=== PATIENT | male | born 1940 | race Caucasian/White ===

== ENCOUNTER 2019-05-07 18:23 | Emergency (ER) | payer MEDICARE, OTHER, SELFPAY ==
[2019-05-07 18:24] VITALS: BP 162/97; PULSE 82; RESP 16; TEMP 36.7; O2SAT 98; BMI 27.3
[2019-05-07 20:16] LABS: Bedside Glucose 82 mg/dL (70-110)
--- NOTE | 2019-05-07 20:28 | EKG12_ITS ---
Test Reason : LEFT ARM NUMBNESS Blood Pressure : / mmHG Vent. Rate : 081 BPM Atrial Rate : 081 BPM P-R Int : 174 ms QRS Dur : 078 ms QT Int : 406 ms P-R-T Axes : 051 -06 072 degrees QTc Int : 471 ms Normal sinus rhythm Normal ECG Confirmed by JENSEN PARSONS, JB ([id number]), editor managing newspaper JORDANA JIANG ([id number]) on 05/11/2019 8:54:11 AM Referred By: MELO Confirmed By:JB STYLES MD
--- NOTE | 2019-05-07 20:30 | RAD_ITS ---
STUDY: X-RAY CHEST REASON FOR EXAM: Male, 79 years old. Chest pain TECHNIQUE: Dental view COMPARISON: February 10, 2017 FINDINGS: The lungs are clear and expanded. There is no demonstrated pleural abnormality. Normal size heart. Normal mediastinum and jarrell. Normal visualized pulmonary arteries. Normal visualized aortic arch and descending thoracic aorta. Normal visualized thoracic spine. There are old bilateral rib fractures. There is no demonstrated abnormality of the visualized soft tissue structures of the upper abdomen. RAD/Chest 1 View (Portable) IMPRESSION: Normal x-ray examination of the chest. Electronically Signed: Chinedu Moyer DO at 20:53 EDT Tel [phone], Service support ,
[2019-05-07 20:31] VITALS: O2SAT 100
[2019-05-07] MEDS: Aspirin 81 MG TAB.CHEW 324 MG PO (20:43)
[2019-05-07 20:51] LABS: Absolute Lymphocyte Count 0.98 X10^3/ul (0.83-4.51); Absolute Neutrophil Count 3.4 X10^3/uL (2.0-7.7); Basophil# 0.01 X10^3/uL; Basophil% 0.2 % (0-1); Eosinophil# 0.01 X10^3/uL; Eosinophils% 0.2 % (0-5); Hematocrit 38.9 % (40-54); Hemoglobin 13.3 g/dl (13.0-16.5); Lymphocyte # 0.98 X10^3/ul (4.0); Lymphocyte % 19.8 % (19-41); Mean Corp Hgb Conc 34.2 g/gl (32-36); Mean Corpuscular Hgb 28.2 pg (27.0-32.0); Mean Corpuscular Volume 82.6 fL (80-94); Mean Platelet Vol. 8.8 fl (6.2-12.0); Monocyte# 0.54 X10^3/uL; Monocyte% 10.9 % (0-10); Neutrophil % 68.5 % (47-70); POSITIVE COUNT NO; POSITIVE DIFFERENTIAL NO; POSITIVE MORPHOLOGY NO; Platelet Count 143 K/mm3 (150-450); RBC Distribution Width CV 14.4 % (11.6-14.6); RBC Distribution Width SD 43.8 fl (35.1-43.9); Red Blood Count 4.71 M/mm3 (4.6-6.2)
[2019-05-07 21:00] VITALS: BP 176/79; PULSE 74; RESP 15; O2SAT 100
[2019-05-07 21:12] LABS: Anion Gap 6 (5-15); BUN 15 mg/dL (7-18); BUN/Creat Ratio 13.9 RATIO (10-20); Calcium,Total 8.8 mg/dL (8.5-10.1); Chloride 109 mmol/L (98-107); Creatinine, Serum 1.08 mg/dL (0.70-1.30); EST Glomerular Filtration Rate 70 mL/min (>60); Est Glom Filt Rate - Afr Amer 85 mL/min (>60); Estimated Creatinine Clearance 51.69 ml/min; Glucose 79 mg/dL (74-106); Potassium 3.5 mmol/L (3.5-5.1); Sodium Level 142 mmol/L (136-145)
--- NOTE | 2019-05-07 22:28 | CT_ITS ---
STUDY: CT BRAIN WITHOUT CONTRAST REASON FOR EXAM: Male, 79 years old. Left arm numbness RADIATION DOSAGE (If Supplied By Facility): CTDIvol = ( 44.99 ) mGy, DLP = ( 812.98 ) mGycm TECHNIQUE: Transaxial CT imaging of the brain was performed without administration of intravenous contrast material. Individualized dose optimization techniques were used for this CT. COMPARISON: No relevant priors. FINDINGS: Normal soft tissue structures. Normal calvarium. Normal size ventricles and extra-axial spaces for the patient's age. Normal white matter tracts of the cerebral hemispheres. Normal basal ganglia and thalami. Focal calcification within the left side of the malvin. Normal cerebellum. There is no intracranial hemorrhage. There are no findings of an acute ischemic infarction. Normal visualized paranasal sinuses. CT/Brain/Head without Contrast IMPRESSION: No acute intracranial pathology of the brain. Electronically Signed: Chinedu Moyer DO at 23:10 EDT Tel [phone], Service support ,
[2019-05-07 23:00] VITALS: BP 172/70; PULSE 71; RESP 17; O2SAT 99
--- NOTE | 2019-05-08 00:53 | ED.DCSUM_ITS ---
- ER Visit Summary Date of Service: 05/08/19 Chief Complaint: Left arm paresthesias History of Present Illness: The patient is a 79 M who presents with left arm paresthesias began prior 24 hours prior to evaluation. Patient states that he began suddenly. Patient states he had some numbness and tingling in his left arm from shoulder to his hands. Patient describes it as a cold sensation and pressure sensation. Patient states nothing makes it better or worse. Patient denies any chest pain or shortness of breath. Patient denies any diaphoresis. Patient denies any nausea or vomiting. Patient does admit to some mild neck pain. Patient denies any headaches. Physical Examination: Vital signs are stable. Patient is afebrile. Patient is in no acute distress. Oral mucosa is pink and moist. Neck is supple. Trachea is midline. There is no JVD noted. There is some mild left cervical paraspinal muscle tenderness. There is no bony crepitance or step-off. Heart was regular rate and rhythm. There is a grade 3/6 systolic murmur. Lungs are clear and equal bilateral. Abdomen is soft and nontender. Cranial nerves II through XII are intact. There are no focal motor or sensory deficits noted. Test Results: Portable chest x-ray was obtained was normal. EKG showed normal sinus rhythm with a rate of 81. There are no acute ST or T wave changes. CBC basic metabolic profile initial troponin were normal. Given the patient's duration of symptoms of less than 6 hours, a delta troponin was recommended. This was performed. This was normal at 0.023. Emergency Department Course and Treatment: Patient has a HEART score of 3. Given the delta troponin being normal, patient is low risk for acute cardiac event. Patient was instructed to follow-up with his primary care physician for further evaluation of his paresthesias. Patient and family understood and were agreeable with the plan. All questions were answered. Disposition: Discharge home Impression: Left upper extremity paresthesias This note was generated with [employer] dictation software. It may contain incorrect words, spelling, and punctuation that were not noted in review of the chart prior to signing ED Disposition - Plan for ED Patient: Disposition: Home or Assisted Living Diagnosis: Arm paresthesia, left Instructions: ED Paraesthesias Referrals: Crispin Cesar MD [Primary Care Provider] - 3-5 Days
[2019-05-08 01:00] VITALS: BP 169/80; PULSE 76; RESP 16; O2SAT 99
[2019-05-08 01:14] VITALS: BP 169/80; PULSE 76; RESP 16; O2SAT 99
== END 2019-05-08 01:15 | disposition home or self-care (01) ==
PROVIDERS: Emergency Provider Emergency Medicine; Family Provider Internal Medicine; PCP Internal Medicine
DX: R20.2 Paresthesia of skin (principal); E11.9 Type 2 diabetes mellitus without complications; Z79.4 Long term (current) use of insulin
CPT/HCPCS: 36415; 70450; 71045; 80048; 82962; 84484; 85025; 93005; 99285; A4216

== ENCOUNTER 2019-12-27 13:26 | Emergency (ER) | payer MEDICARE, OTHER, SELFPAY ==
[2019-12-27 13:28] VITALS: BP 148/88; PULSE 70; RESP 16; TEMP 36.4; O2SAT 98; BMI 27.2
[2019-12-27 14:07] LABS: Absolute Lymphocyte Count 0.98 X10^3/uL (0.83-4.51); Absolute Neutrophil Count 3.6 X10^3/uL (2.0-7.7); Basophil# 0.02 X10^3/uL; Basophil% 0.4 % (0-1); Eosinophil# 0.03 X10^3/uL; Eosinophils% 0.6 % (0-5); Hematocrit 40.4 % (40-54); Hemoglobin 13.8 g/dL (13.0-16.5); Lymphocyte # 0.98 X10^3/ul (4.0); Lymphocyte % 18.9 % (19-41); Mean Corp Hgb Conc 34.2 g/dL (32-36); Mean Corpuscular Hgb 27.2 pg (27.0-32.0); Mean Corpuscular Volume 79.5 fL (80-94); Mean Platelet Vol. 9.8 fl (6.2-12.0); Monocyte# 0.53 X10^3/uL; Monocyte% 10.2 % (0-10); NRBC Flagged by Analyzer 0 % (0-5); Neutrophil # 3.59 X10^3/uL (2.7-7.7); Neutrophil % 69.1 % (47-70); Platelet Count 187 K/mm3 (150-450); RBC Distribution Width CV 15.4 % (11.6-14.6); RBC Distribution Width SD 44.2 fl (35.1-43.9); Red Blood Count 5.08 M/mm3 (4.6-6.2); White Blood Count 5.2 K/mm3 (4.4-11.0)
[2019-12-27 14:14] LABS: ALB/GLOB Ratio 1.2 RATIO (0.9-2.4); AST(SGOT) 24 U/L (15-37); Alanine Aminotransfer ALT/SGPT 42 U/L (16-61); Albumin, Serum 3.3 g/dL (3.2-5.0); Alkaline Phosphatase 96 U/L (45-117); Anion Gap 6 (5-15); BUN 13 mg/dL (7-18); BUN/Creat Ratio 11.8 RATIO (10-20); Calcium,Total 8.8 mg/dL (8.5-10.1); Chloride 112 mmol/L (98-107); EST Glomerular Filtration Rate 69 mL/min (>60); Est Glom Filt Rate - Afr Amer 83 mL/min (>60); Estimated Creatinine Clearance 50.75 ml/min; Globulin 2.8 g/dL (2.2-4.2); Glucose 256 mg/dL (74-106); Protein, Total 6.1 g/dL (6.4-8.2); Sodium Level 142 mmol/L (136-145)
--- NOTE | 2019-12-27 14:36 | ED.DCSUM_ITS ---
History of Present Illness Chief Complaint: Abn Labs Narrative: Patient presenting for evaluation secondary to hypokalemia. Patient has an underlying history of a liver transplant. Patient states that he went to get his normal screening labs today and was told that he was hypokalemic and instructed to come to the emergency department. He did feel somewhat fatigued today, but denies any infectious signs or symptoms. He has been zoroastrian with taking his medications. Patient is not on any diuretics. No changes in his diet. Patient is recently on doxycycline. Review of systems otherwise negative. Past Medical History - Allergies and Home Meds Allergies/Adverse Reactions: Allergies Penicillins [PCN] Adverse Reaction (Verified 12/27/19 13:28) Other IT DOESN'T WORK ON ME. Primary Care Physician: Crispin Cesar MD [Primary Care Provider] - Past Medical History: - - Liver transplant Surgical History: - - History of liver transplant 113, appendectomy, left hand surgery status post trauma, right inguinal hernia repair, umbilical hernia repair. Smoking Status: Never smoker - Family History Maternal Family History: Reports: Diabetes, Heart Disease Paternal Family History: Reports: Diabetes, Heart Disease - History of at 58, unclear reason, s/p leg crush injury at that time w/ suspected PE. Review of Systems All systems negative except as indicated General: Reports: Malaise Eyes: Denies: Visual changes - bilaterally, Diplopia ENT: Denies: Rhinorrhea, Sore throat Cardiovascular: Denies: Chest pain, Palpitations Respiratory: Denies: Dyspnea, Cough, Dyspnea on exertion Gastrointestinal: Denies: Abdominal pain, Nausea, Vomiting, Diarrhea, Melena, Hematochezia Genitourinary: Denies: Dysuria, Hematuria, Frequency Musculoskeletal: Denies: Back pain, Extremity Pain Skin: Denies: Rash, Wounds Neurological: Denies: Headache, Weakness, Numbness Physical Exam Vital Signs/Narrative: Vital Signs Temp Pulse Resp BP Pulse Ox 12/27/19 13:28 97.5 F L 70 16 148/88 H 98 Inital Vital Signs reviewed: Yes General: Well nourished, Well developed, No Acute Distress Head: Normocephalic, Atraumatic Eyes: Perrl, EOMI ENT: Moist mucous membranes, No rhinorrhea Neck: Supple, Nontender Cardiovascular: Regular rate, Regular rhythm, Murmur - 2 out of 6 systolic Respiratory: No distress, CTA bilaterally, Chest nontender Abdomen: Soft, Nontender, Nondistended, Normal bowel sounds, - - Well-healed abdominal surgical scar Back: Nontender, Normal Inspection Extremities: Nontender, No edema Skin: Normal color, No rash Neurological: Alert, Oriented x3, Cranial nerves II-XII grossly intact, Normal Strength, Normal Sensation Psychological: Normal affect, Normal Mood Diagnostic/Tx/Re-eval - Medical Decision Making Patient presented due to concern for hyperkalemia. Potassium was found to be 3.0. I feel that the patient is appropriate for outpatient treatment at this time. He is not on any diuretics that would make me think that he would have increased potassium loss. Patient will be placed on a course of oral potassium replacement. ED Disposition - Plan for ED Patient: Disposition: Home or Assisted Living Diagnosis: Hypokalemia Instructions: Hypokalemia Prescriptions: Potassium Chloride [K-Tab ER] 20 meq PO BID #10 tablet.er Prescription Printed Referrals: Crispin Cesar MD [Primary Care Provider] - 5-7 Days
[2019-12-27 14:56] VITALS: PULSE 74; RESP 17; O2SAT 98
== END 2019-12-27 14:57 | disposition home or self-care (01) ==
PROVIDERS: Emergency Provider Emergency Medicine; PCP Internal Medicine
DX: E87.6 Hypokalemia (principal); R01.1 Cardiac murmur, unspecified; Z94.4 Liver transplant status; Z79.899 Other long term (current) drug therapy
CPT/HCPCS: 80053; 85025; 99283; A4216

== ENCOUNTER → 2020-09-15 17:25 | Outpatient (CLI) | payer MEDICARE, OTHER, SELFPAY | PROVIDERS: PCP Internal Medicine; Referring Provider Nurse Practitioner; Visit Provider Nurse Practitioner | DX: Z20.828 Contact with and (suspected) exposure to other viral communicable diseases (principal) | CPT/HCPCS: 87635; C9803; U0003 ==

== ENCOUNTER 2021-02-16 00:21 | Emergency (ER) | payer MEDICARE, OTHER, SELFPAY ==
[2021-02-16 00:22] VITALS: BP 133/64; PULSE 67; RESP 21; TEMP 37.1; O2SAT 95; BMI 27.1
--- NOTE | 2021-02-16 00:28 | EKG12_ITS ---
Test Reason : GEN ILL Blood Pressure : / mmHG Vent. Rate : 065 BPM Atrial Rate : 065 BPM P-R Int : 190 ms QRS Dur : 078 ms QT Int : 434 ms P-R-T Axes : 048 -11 031 degrees QTc Int : 451 ms Normal sinus rhythm Normal ECG Confirmed by JENSEN PARSONS, JB ([id number]), editor dictionary JORDANA JIANG ([id number]) on 02/19/2021 10:31:15 AM Referred By: CL Confirmed By:JB STYLES MD
--- NOTE | 2021-02-16 00:28 | RAD_ITS ---
STUDY: X-RAY CHEST REASON FOR EXAM: Male, 81 years old. cough TECHNIQUE: Single AP portable view of the chest. COMPARISON: 05/07/2019 FINDINGS: The lungs are clear and expanded. There is no demonstrated pleural abnormality. Normal size heart. Normal mediastinum and jarrell. Normal visualized pulmonary arteries. Normal visualized aortic arch and descending thoracic aorta. Normal visualized thoracic spine. Normal visualized ribs, clavicles, and shoulders. There is no demonstrated abnormality of the visualized soft tissue structures of the upper abdomen. RAD/Chest 1 View (Portable) IMPRESSION: Normal x-ray examination of the chest. Electronically Signed: Korey Hillman DO at 1:33 EDT Tel , Service support ,
[2021-02-16 00:31] VITALS: BP 127/62; PULSE 66; RESP 20; TEMP 37.1; O2SAT 95
[2021-02-16 00:46] LABS: Absolute Lymphocyte Count 0.86 X10^3/uL (0.83-4.51); Absolute Neutrophil Count 3.8 X10^3/uL (2.0-7.7); Basophil# 0.01 X10^3/uL; Basophil% 0.2 % (0-1); Eosinophil# 0.09 X10^3/uL; Eosinophils% 1.6 % (0-5); Hematocrit 31.8 % (40-54); Lymphocyte # 0.86 X10^3/ul (4.0); Lymphocyte % 15.4 % (19-41); Mean Corp Hgb Conc 34.6 g/dL (32-36); Mean Corpuscular Hgb 28.1 pg (27.0-32.0); Mean Corpuscular Volume 81.1 fL (80-94); Mean Platelet Vol. 8.7 fl (6.2-12.0); Monocyte# 0.81 X10^3/uL; Monocyte% 14.5 % (0-10); NRBC Flagged by Analyzer 0 % (0-5); Neutrophil # 3.79 X10^3/uL (2.7-7.7); Neutrophil % 67.8 % (47-70); Platelet Count 237 K/mm3 (150-450); RBC Distribution Width CV 13.1 % (11.6-14.6); RBC Distribution Width SD 38.5 fl (35.1-43.9); Red Blood Count 3.92 M/mm3 (4.6-6.2); White Blood Count 5.6 K/mm3 (4.4-11.0)
--- NOTE | 2021-02-16 00:56 | ED.VIS.GEN ---
History of Present Illness Chief Complaint: General Illness Informant: Patient Narrative: 81-year-old male with past medical history of liver transplant presents with concern for weakness. Patient was diagnosed with coronavirus 1 week ago. Has had symptoms for approximately 10 days. Did receive his second COVID vaccine 8 days ago. was concerned because he had an oxygen saturation at home of 86%. This immediately improved when they went to walk out the door to 95%. Patient has been feeling weak over the past 1 week. Admits to mild short of breath. Does have myalgias. Denies any nausea, vomiting, diarrhea. Past Medical History - Allergies and Home Meds Allergies/Adverse Reactions: Allergies Penicillins [PCN] Adverse Reaction (Verified 02/16/21 00:22) Other IT DOESN'T WORK ON ME. Primary Care Physician: Crispin Cesar MD [Primary Care Provider] - Prior records reviewed: Yes Past Medical History: - - hemachromatosis Surgical History: - - History of liver transplant 113, appendectomy, left hand surgery status post trauma, right inguinal hernia repair, umbilical hernia repair. Lives: Spouse/ Significant Other Smoking Status: Never smoker Alcohol: None Drugs: None - Family History Maternal Family History: Reports: Diabetes, Heart Disease Paternal Family History: Reports: Diabetes, Heart Disease - History of at 58, unclear reason, s/p leg crush injury at that time w/ suspected PE. Review of Systems General: Denies: Chills, Fever, Sweats Eyes: Denies: Visual changes - bilaterally, Diplopia ENT: Denies: Rhinorrhea, Sore throat Cardiovascular: Denies: Chest pain, Palpitations Respiratory: Reports: Dyspnea. Denies: Cough, Dyspnea on exertion Gastrointestinal: Denies: Abdominal pain, Nausea, Vomiting, Diarrhea, Melena, Hematochezia Genitourinary: Denies: Dysuria, Hematuria, Frequency Musculoskeletal: Reports: Myalgias. Denies: Back pain, Extremity Pain Skin: Denies: Rash, Wounds Neurological: Reports: Weakness. Denies: Headache, Numbness Physical Exam Vital Signs/Narrative: Vital Signs Temp Pulse Resp BP Pulse Ox 02/16/21 00:31 98.7 F 66 20 H 127/62 H 95 02/16/21 00:22 98.7 F 67 21 H 133/64 H 95 Inital Vital Signs reviewed: Yes General: Well nourished, Well developed, No Acute Distress Head: Normocephalic, Atraumatic Eyes: Perrl, EOMI ENT: Moist mucous membranes, No rhinorrhea Neck: Supple, Nontender Cardiovascular: Regular rate, Regular rhythm, No murmurs Respiratory: No distress, CTA bilaterally, Chest nontender Abdomen: Soft, Nontender, Nondistended, Normal bowel sounds Back: Nontender, Normal Inspection Extremities: Nontender, No edema Skin: Normal color, No rash Neurological: Alert, Oriented x3, Cranial nerves II-XII grossly intact, Normal Strength, Normal Sensation Psychological: Normal affect, Normal Mood Diagnostic/Tx/Re-eval Chest X-Ray - ED: 1 View, Read by ED Physician, Read by Radiologist, Normal Clinical Impression(s) from Imaging Studies Chest X-Ray 02/16/21 00:28 IMPRESSION: Normal x-ray examination of the chest. Electronically Signed: Korey Hillman DO at 1:33 EDT Tel , Service support , Laboratory Data 02/16/21 02/16/21 00:41 00:41 WBC 5.6 RBC 3.92 L Hgb 11.0 L Hct 31.8 L MCV 81.1 MCH 28.1 MCHC 34.6 RDW Std Deviation 38.5 RDW Coeff of Gaetano 13.1 Plt Count 237 MPV 8.7 Immature Gran % (Auto) 0.500 Neut % (Auto) 67.8 Lymph % (Auto) 15.4 L [place] % (Auto) 14.5 H Eos % (Auto) 1.6 Baso % (Auto) 0.2 Absolute Neuts (auto) 3.8 Absolute Lymphs (auto) 0.86 Nucleated RBC % 0 Sodium 133 L Potassium 3.2 L Chloride 103 Carbon Dioxide 23.0 Anion Gap 7 BUN 21 H Creatinine 1.16 Estim Creat Clear Calc 46.60 Est GFR (MDRD) Af Amer 78 Est GFR (MDRD) Non-Af 65 BUN/Creatinine Ratio 18.1 Glucose 153 H Calcium 8.3 L Total Bilirubin 0.40 AST 88 H ALT 95 H Alkaline Phosphatase 197 H Troponin I < 0.015 Total Protein 5.9 L Albumin 2.3 L Globulin 3.6 Albumin/Globulin Ratio 0.6 L - Rhythm Strip Rhythm Strip: Sinus Rhythm Rate: 65 Ectopy: None - EKG Initial EKG Interpretation: Sinus Rhythm - Normal sinus rhythm at 65 bpm. DE interval of 190 ms. QTC of 451 ms. No evidence of ST elevation or depression at this time. - Medical Decision Making Patient appears well nontoxic. No hypoxemia at rest. Lungs clear. Chest x-ray interpreted by myself shows no cardiomegaly or significant infiltrate. Lab work shows a hypokalemia which was replaced by mouth otherwise there is a slight transaminitis. No hyperbilirubinemia. EKG nonischemic. Patient was ambulated on room air and desaturated to 87%. Patient will be placed on 2 L by nasal cannula at home on exertion. Advised on continued pulse oximetry evaluation at home. Patient will be given 6 mg of IV Decadron in the emergency department and placed on 6 mg by mouth for the next 10 days. Asked to be seen by his primary care provider within the next 2 days. Patient and agreeable and discharged home in stable condition. Impression: 1. COVID-19 2. Hypoxemia ED Disposition - Plan for ED Patient: Disposition: Home or Assisted Living Instructions: Coronavirus Disease 2019 (COVID-19): Overview Prescriptions: Dexamethasone [Decadron] 6 mg PO DAILY 10 Days #10 tablet Prescription Printed Referrals: Crispin Cesar MD [Primary Care Provider] - 2 Days
[2021-02-16 01:05] LABS: ALB/GLOB Ratio 0.6 RATIO (0.9-2.4); AST(SGOT) 88 U/L (15-37); Alanine Aminotransfer ALT/SGPT 95 U/L (16-61); Albumin, Serum 2.3 g/dL (3.2-5.0); Alkaline Phosphatase 197 U/L (45-117); Anion Gap 7 (5-15); BUN 21 mg/dL (7-18); BUN/Creat Ratio 18.1 RATIO (10-20); Calcium,Total 8.3 mg/dL (8.5-10.1); Chloride 103 mmol/L (98-107); Creatinine, Serum 1.16 mg/dL (0.70-1.30); EST Glomerular Filtration Rate 65 mL/min (>60); Est Glom Filt Rate - Afr Amer 78 mL/min (>60); Globulin 3.6 g/dL (2.2-4.2); Glucose 153 mg/dL (74-106); Potassium 3.2 mmol/L (3.5-5.1); Protein, Total 5.9 g/dL (6.4-8.2); Sodium Level 133 mmol/L (136-145)
[2021-02-16 01:40] VITALS: O2SAT 100
[2021-02-16] MEDS: Potassium Chloride Oral Tablet 20 MEQ 40 MEQ PO (01:44)
[2021-02-16 02:08] VITALS: O2SAT 100; O2SAT 87
--- NOTE | 2021-02-16 02:18 | ED.RN ---
toi called for home o2 set up
[2021-02-16 02:48] VITALS: BP 136/78; PULSE 68; RESP 20; O2SAT 98
[2021-02-16] MEDS: Ondansetron 4 MG/2 ML Vial IV (02:51)
[2021-02-16] MEDS: dexAMETHasone 10 MG/ML Vial 6 MG IV (02:53)
--- NOTE | 2021-02-16 13:34 | CASEMGMT ---
ED O2 set up TC TC to pt. Pt states he feels about medium today. States he is wearing his O2. Pt then asked this CM to speak to his . She states that she has not yet set up the FU appt with PCP but will do so. She states they are just getting around today from ER visit lastnight. She states this morning pt pulse ox was 96% on RA while eating breakfast. She has not checked it otherwise. They do have script filled. Denies further questions/needs.
--- NOTE | 2021-02-17 16:55 | CM.UR ---
spoke with Mrs. Lopez. States patient is doing a little better. States temperature has come down. running 97.4 and 97.7. Pulse ox: am: 96% lunch 98% 3pm: 100% States only using oxygen with ambulation. Denies shortness of breath at rest. Has virtual appt on Friday at 1:30pm. Checking blood sugars q2 hours d/t steroids. Lunch it was 401 3pm: 333 Has ordered doses + sliding scale. Has [facility] provider in [place] that he is following for blood sugars. Denies any needs at this time. Jerome Rogers RN, CCM.
--- NOTE | 2021-02-19 16:03 | CASEMGMT ---
RN CM Note: call deferred. Patient has PCP appt today. Kimo WOODSN RN ACM
== END 2021-02-16 03:08 | disposition home or self-care (01) ==
PROVIDERS: Emergency Provider Emergency Medicine; PCP Internal Medicine
DX: U07.1 COVID-19 (principal); R09.02 Hypoxemia
CPT/HCPCS: 71045; 80053; 84484; 85025; 93005; 96374; 96375; 99284; A4216; J2405

== ENCOUNTER 2021-12-04 13:14 | Outpatient (CLI) | payer MEDICARE, OTHER, SELFPAY | END 2021-12-04 23:59 | disposition short-term general hospital (02) | LOC: LABSPEC 13:16 | PROVIDERS: PCP Internal Medicine; Referring Provider Physician Assistant Surgical; Visit Provider Physician Assistant Surgical | DX: Z11.52 Encounter for screening for COVID-19 (principal) | CPT/HCPCS: 87635; U0003; U0005 ==

== ENCOUNTER 2021-12-23 22:39 | Inpatient (IN) | payer MEDICARE, OTHER, SELFPAY ==
[2021-12-23 22:40] VITALS: BP 144/67; PULSE 90; RESP 18; TEMP 37.7; O2SAT 91; BMI 26.3
[2021-12-23 22:48] VITALS: O2SAT 91
--- NOTE | 2021-12-23 23:01 | RAD_ITS ---
EXAM: XR CHEST, 1 VIEW CLINICAL INDICATION: cough TECHNIQUE: Frontal view of the chest. This report was created using [employer] report generation technology. COMPARISON: 02/16/2021 chest x-ray FINDINGS: LUNGS AND PLEURAL SPACES: No pleural effusion or pneumothorax. No consolidation. No suspicious pulmonary masses or nodules. Mild age-indeterminate proximal wall thickening involving the perihilar and infrahilar regions. HEART: No hilar or mediastinal enlargement. No cardiomegaly. MEDIASTINUM: Central airways and mediastinal contour are unremarkable. BONES/JOINTS: Degenerative changes of the spine. SOFT TISSUES: Unremarkable. VASCULATURE: Stable appearance of the ectatic thoracic arch with atherosclerotic calcifications. RAD/Chest 1 View (Portable) IMPRESSION: Age-indeterminate bronchitis. Otherwise, no acute cardiopulmonary disease. Electronically Signed: Rudy Wick MD at 23:52 EST Tel , Service support ,
--- NOTE | 2021-12-23 23:01 | EKG12_ITS ---
Test Reason : SOB Blood Pressure : / mmHG Vent. Rate : 072 BPM Atrial Rate : 072 BPM P-R Int : 182 ms QRS Dur : 072 ms QT Int : 424 ms P-R-T Axes : 028 -16 044 degrees QTc Int : 464 ms Normal sinus rhythm Normal ECG Confirmed by JENSEN PARSONS, JB ([id number]), technical writer and editor JORDANA JIANG ([id number]) on 12/25/2021 9:36:53 AM Referred By: KIRAN Confirmed By:JB STYLES MD
--- NOTE | 2021-12-23 23:02 | EDS_ITS ---
HPI History of Present Illness Chief Complaint: Shortness of Breath Narrative Narrative: 81-year-old male presenting with dyspnea. He reports that his home pulse ox was in the 80s at home. This is with ambulation. He arrives with a pulse ox of 91% on room air and after ambulating to the room he is down to 86%. He states he does feel a little bit dyspneic when he is ambulating but at rest he feels fine. He states he had a fever of 101 prior to arrival. He still has chills and body aches. He is not having any chest pain. He denies any history of DVT/PE. Patient reports that he had COVID-19 in January of last year and ended up having to go home with oxygen therapy. On his tested positive for COVID-19 and he was initially not symptomatic but then developed a sore throat and a cough and has been tested multiple times. He had a COVID PCR that was also negative earlier this month. His primary care physician initially put him on Keflex to treat for pneumonia which he states was in the right middle lobe. Patient also reports that after he failed this therapy he was put on cefdinir. He continues to have symptoms. Patient does have history of liver transplant and is immunosuppressed. Currently the patient is on sirolimus. Patient has history of hypertension, diabetes, hyperlipidemia. PFSH PFSH Home Medications amlodipine 2.5 mg PO DAILY 07/03/14 [History Last Taken 02/19/15 08:00 2.5MG] aspirin 81 mg PO DAILY 07/03/14 [History Last Taken 02/19/15 08:00 81 MG] atorvastatin 10 mg PO QHS 07/03/14 [History Last Taken 02/18/15 22:00 10 MG] insulin lispro [Humalog U-100 Insulin] 15 unit SQ BREAKFAST 07/03/14 [History Last Taken 02/19/15 17:00 4 UNITS] insulin glargine [Lantus Solostar U-100 Insulin] 49 units SUBCUT QHS 10/07/16 [History Last Taken Unknown] sirolimus 2 mg PO DAILY 10/07/16 [History Last Taken Unknown] donepezil 10 mg PO DAILY 05/07/19 [History Last Taken Unknown] folic acid 1 mg PO DAILY 05/07/19 [History Last Taken Unknown] losartan [Cozaar] 25 mg PO BID 05/07/19 [History Last Taken Unknown] insulin lispro 13 unit SQ DINNER 12/27/19 [History Last Taken Unknown] insulin lispro 17 unit SQ LUNCH 12/27/19 [History Last Taken Unknown] insulin lispro unit SQ PRN PRN 02/16/21 [History Last Taken Unknown] B.infantis-B.ani-B.long-B.bifi [Probiotic Digestive Care] 1 tab PO DAILY 12/24/21 [History Last Taken Unknown] ergocalciferol (vitamin D2) 50,000 unit PO QWEEK 12/24/21 [History Last Taken Unknown] metronidazole 1 applic TOPICAL DAILY 12/24/21 [History Last Taken Unknown] subcutaneous insulin pump [Omnipod Insulin Management] 12/24/21 [History Last Taken Unknown] Allergy/AdvReac Type Severity Reaction Status Date / Time Penicillins [PCN] AdvReac Other Verified 12/23/21 22:43 Social History Smoking Status: Never smoker ROS ROS ED Constitutional Constitutional ED: Reports chills and fever(s) Eyes Eyes: Denies blurry vision or diplopia ENT ENT ED: Denies rhinorrhea or sore throat Cardiovascular Cardiovascular: Denies chest pain or palpitations Respiratory/Chest Respiratory/Chest: Reports dyspnea; Denies cough Gastrointestinal Gastrointestinal: Denies abdominal pain, nausea or vomiting Genitourinary Genitourinary ED: Denies dysuria or hematuria Musculoskeletal Musculoskeletal: Reports myalgias; Denies arthralgias or neck pain Integumentary Denies Abrasions or rash Neurologic Neurologic: Denies headache(s) or paresthesias EXAM Physical Exam Const Vital Signs: 12/23/21 22:40 12/24/21 00:10 12/24/21 00:20 Temperature 99.8 F H Temperature Source Oral Pulse Rate 90 70 Respiratory Rate 18 26 H Blood Pressure 144/67 H 146/74 H Blood Pressure Mean 92 98 Pulse Ox 91 88 98 Oxygen Delivery Method Room Air Room Air Nasal Cannula Oxygen Flow Rate (L/min) 2 12/24/21 01:39 12/24/21 02:30 12/24/21 03:00 Temperature 98.5 F Temperature Source Oral Pulse Rate 72 72 75 Respiratory Rate 24 H 24 H 25 H Blood Pressure 159/67 H 158/77 H 149/71 H Blood Pressure Mean 97 104 97 Pulse Ox 96 96 95 Oxygen Delivery Method Nasal Cannula Nasal Cannula Nasal Cannula Oxygen Flow Rate (L/min) 2 2 2 Positive well nourished General Appearance ED: NAD; Negative for pallor HEENT Reports moist mucous membranes atraumatic Eyes PERRL and EOMs intact bilaterally General Eye ED: Negative for pale conjunctiva or scleral icterus Neck no lymphadenopathy and supple Resp normal respiratory effort and clear to auscultation bilaterally Cardio regular rate and regular rhythm Neuro oriented x3, CN's II-XII intact bilaterally and no sensory deficits noted Sensorium / Orientation: alert Motor Exam: strength 5/5 throughout Psych mental status grossly normal Skin General Skin Exam: Negative for jaundice or pallor MDM MDM MDM Narrative Medical decision making narrative: Patient presenting with hypoxia from home. He was previously treated for pneumonia with Keflex and then followed with cefdinir. He is not having improvement. His symptoms have been going on for about 3 weeks. Patient reports a fever today prior to arrival. EKG on my interpretation shows a sinus rhythm with a ventricular rate of 72 bpm without sign of ischemic change. Chest x-ray my interpretation shows no acute cardiopulmonary process. Radiologist agree and does state that there is age- indeterminate bronchitis. CBC shows white blood cell count of 5.7, hemoglobin 10.7 which is near baseline, platelets 328. LFTs are normal. Renal function is normal. Potassium slightly low at 3.2. Lactic acid 0.8. Procalcitonin 0.16. Rapid Covid is negative. While awaiting PCR test patient had CTA of the chest which does not identify any pulmonary emboli or dissection. There is identified multi lobar groundglass opacities. There is also a 1.9 cm subcarinal lymph node which is of nonspecific etiology. Covid PCR is negative. Given patient's hypoxia with ambulation down to 86 I think he will need to be admitted to the hospital for further evaluation. Discussed with hospitalist for admission. Impression: 1. Hypoxic respiratory failure 2. Febrile illness Lab Data Attestation: I reviewed the patient's lab results. Labs: Laboratory Results - last 24 hr 12/23/21 12/23/21 12/23/21 23:25 23:25 23:25 WBC 5.7 RBC 4.13 L Hgb 10.7 L Hct 32.5 L MCV 78.7 L MCH 25.9 L MCHC 32.9 RDW Std Deviation 40.2 RDW Coeff of Gaetano 14.1 Plt Count 328 MPV 8.7 Immature Gran % (Auto) 0.500 Neut % (Auto) 68.6 Lymph % (Auto) 15.9 L [place] % (Auto) 11.0 H Eos % (Auto) 3.5 Baso % (Auto) 0.5 Absolute Neuts (auto) 3.9 Absolute Lymphs (auto) 0.90 Nucleated RBC % 0 Sodium 135 L Potassium 3.2 L Chloride 102 Carbon Dioxide 26.0 Anion Gap 7 BUN 16 Creatinine 1.01 Estim Creat Clear Calc 53.52 Est GFR (MDRD) Af Amer 91 Est GFR (MDRD) Non-Af 76 BUN/Creatinine Ratio 15.8 Glucose 107 H Lactic Acid 0.8 Calcium 8.5 Total Bilirubin 0.50 AST 36 ALT 44 Alkaline Phosphatase 96 Troponin I High Sens 10 Total Protein 6.2 L Albumin 2.6 L Globulin 3.6 Albumin/Globulin Ratio 0.7 L Procalcitonin COVID-19 (JAMES) 12/23/21 12/24/21 23:25 00:07 WBC RBC Hgb Hct MCV MCH MCHC RDW Std Deviation RDW Coeff of Gaetano Plt Count MPV Immature Gran % (Auto) Neut % (Auto) Lymph % (Auto) [place] % (Auto) Eos % (Auto) Baso % (Auto) Absolute Neuts (auto) Absolute Lymphs (auto) Nucleated RBC % Sodium Potassium Chloride Carbon Dioxide Anion Gap BUN Creatinine Estim Creat Clear Calc Est GFR (MDRD) Af Amer Est GFR (MDRD) Non-Af BUN/Creatinine Ratio Glucose Lactic Acid Calcium Total Bilirubin AST ALT Alkaline Phosphatase Troponin I High Sens Total Protein Albumin Globulin Albumin/Globulin Ratio Procalcitonin 0.16 H COVID-19 (JAMES) Not Detected Radiography Diagnostic Testing: Clinical Impression(s) from Imaging Studies Chest X-Ray 12/23/21 23:01 IMPRESSION: Age-indeterminate bronchitis. Otherwise, no acute cardiopulmonary disease. Electronically Signed: Rudy Wick MD at 23:52 EST Tel , Service support , Chest CTA 12/24/21 00:50 IMPRESSION: 1. Bilateral multilobar subtle patchy groundglass opacities. Consider infectious etiology. 2. No PE. 3. Few healing rib fractures anterolaterally at the lower aspect of the right hemithorax. 4. Nonspecific but potentially reactive subcarinal adenopathy measuring up to 1.9 cm short axis. Attention on follow-up. Electronically Signed: Rudy Wick MD at 2:05 EST Tel , Service support , Discharge Plan Triage Chief Complaint: Shortness of Breath ED Provider: Tomasz Rob Dx/Rx/DC Orders Primary Care Provider: Crispin Cesar
[2021-12-23 23:51] LABS: Absolute Neutrophil Count 3.9 X10^3/uL (2.0-7.7); Basophil# 0.03 X10^3/uL; Basophil% 0.5 % (0-1); Eosinophils% 3.5 % (0-5); Hematocrit 32.5 % (40-54); Hemoglobin 10.7 g/dL (13.0-16.5); Lymphocyte % 15.9 % (19-41); Mean Corp Hgb Conc 32.9 g/dL (32-36); Mean Corpuscular Hgb 25.9 pg (27.0-32.0); Mean Corpuscular Volume 78.7 fL (80-94); Mean Platelet Vol. 8.7 fl (6.2-12.0); Monocyte# 0.62 X10^3/uL; NRBC Flagged by Analyzer 0 % (0-5); Neutrophil # 3.88 X10^3/uL (2.7-7.7); Neutrophil % 68.6 % (47-70); Platelet Count 328 K/mm3 (150-450); RBC Distribution Width CV 14.1 % (11.6-14.6); RBC Distribution Width SD 40.2 fl (35.1-43.9); Red Blood Count 4.13 M/mm3 (4.6-6.2); White Blood Count 5.7 K/mm3 (4.4-11.0)
[2021-12-24] VITALS (12 sets, daily range): BP systolic 125–161; BP diastolic 67–82; PULSE 70–92; RESP 16–26; TEMP 36.4–37.1; O2SAT 88–98; BMI 26.0
[2021-12-24 00:10] LABS: ALB/GLOB Ratio 0.7 RATIO (0.9-2.4); AST(SGOT) 36 U/L (15-37); Alanine Aminotransfer ALT/SGPT 44 U/L (16-61); Albumin, Serum 2.6 g/dL (3.2-5.0); Alkaline Phosphatase 96 U/L (45-117); Anion Gap 7 (5-15); BUN 16 mg/dL (7-18); BUN/Creat Ratio 15.8 RATIO (10-20); Calcium,Total 8.5 mg/dL (8.5-10.1); Chloride 102 mmol/L (98-107); Creatinine, Serum 1.01 mg/dL (0.70-1.30); EST Glomerular Filtration Rate 76 mL/min (>60); Est Glom Filt Rate - Afr Amer 91 mL/min (>60); Estimated Creatinine Clearance 53.52 ml/min; Globulin 3.6 g/dL (2.2-4.2); Glucose 107 mg/dL (74-106); Potassium 3.2 mmol/L (3.5-5.1); Protein, Total 6.2 g/dL (6.4-8.2); Sodium Level 135 mmol/L (136-145); Troponin-I HS 10 pg/mL (3.0-78.0)
[2021-12-24 00:11] LABS: Lactic Acid 0.8 mmol/L (0.4-1.9)
[2021-12-24 00:35] LABS: Procalcitonin 0.16 ng/mL (0.00-0.09)
--- NOTE | 2021-12-24 00:50 | CT_ITS ---
EXAM: CT ANGIOGRAPHY CHEST WITHOUT AND WITH INTRAVENOUS CONTRAST CLINICAL INDICATION: dyspnea TECHNIQUE: Helically acquired angiography images were obtained of the chest without and with intravenous contrast. CTDIvol = ( 13.18 ) mGy, DLP = ( 498.79 ) mGycm This CT exam was performed using one or more of the following dose reduction techniques: automated exposure control, adjustment of the mA and/or kV according to patient size, and/or use of iterative reconstruction technique. This report was created using [employer] report generation technology. MIP reconstructed images were created and reviewed. CONTRAST: IV 100mL Isovue-370 COMPARISON: Chest x-ray 12/23/2021. FINDINGS: PULMONARY ARTERIES: No PE. Normal in caliber. No evidence of pulmonary embolism. AORTA: No aortic aneurysm or dissection. GREAT VESSELS OF AORTIC ARCH: Unremarkable. Normal in caliber. No evidence of dissection. LUNGS AND PLEURAL SPACES: Subsegmental atelectasis at the posterior lower lobes. Bilateral multilobar subtle patchy groundglass opacities. Mild pleural parenchymal scarring involving the right middle lobe and adjacent anterior basal portion of the right upper lobe. Subtle patchy ground glass opacities are also seen involving the No mass. No consolidation or edema. No pleural effusion or thickening. No pneumothorax. HEART: Multivessel calcific coronary atherosclerotic disease. No pericardial effusion. No signs of right heart strain, ratio of right ventricle to left ventricle measures less than 1. MEDIASTINUM: Subcarinal adenopathy measuring 1.9 cm. No other mediastinal or hilar adenopathy. Esophagus is unremarkable. No hiatal hernia. THYROID: Unremarkable. No thyroid lesions. BONES/JOINTS: Few healing left rib fractures anterolaterally at the lower aspect of the right hemithorax (ribs 7 and 8). No other remarkable lytic or sclerotic lesions of bone. GALLBLADDER AND BILE DUCTS: Right upper quadrant clips. Gallbladder fossa is incompletely imaged but appears empty. Correlate with surgical history. CT/CTA Chest W/WO Contrast IMPRESSION: 1. Bilateral multilobar subtle patchy groundglass opacities. Consider infectious etiology. 2. No PE. 3. Few healing rib fractures anterolaterally at the lower aspect of the right hemithorax. 4. Nonspecific but potentially reactive subcarinal adenopathy measuring up to 1.9 cm short axis. Attention on follow-up. Electronically Signed: Rudy Wick MD at 2:05 EST Tel , Service support ,
[2021-12-24] MEDS: dexAMETHasone 10 MG/ML Vial 6 MG IV (01:44)
--- NOTE | 2021-12-24 03:43 | HP.PCM.HOS_ITS ---
[facility] - General General Date of Admission: 12/24/21 HPI Narrative ALEXANDER STRONG, is a 81 M with a significant history of liver transplant on sirolimus, was; hypertension; diabetes mellitus with insulin pump; and Alzheimer disease who presents to the emergency department with 3 weeks of persistent cough, cold, fever, and chills. Patient symptoms started after his was diagnosed with Covid. Reported patient was diagnosed outpatient with right middle lobe pneumonia. Patient has completed 8 days course of Keflex.On December 04, 2021 patient tested negative for Covid. On the day of presentation patient was hypoxic. In January 2021 patient was diagnosed with Covid and was discharged home on oxygen. [facility] Medical History Diabetes Hypertension Home Medications amlodipine 2.5 mg PO DAILY 07/03/14 [History Last Taken 02/19/15 08:00 2.5MG] aspirin 81 mg PO DAILY 07/03/14 [History Last Taken 02/19/15 08:00 81 MG] atorvastatin 10 mg PO QHS 07/03/14 [History Last Taken 02/18/15 22:00 10 MG] insulin lispro [Humalog U-100 Insulin] 15 unit SQ BREAKFAST 07/03/14 [History Last Taken 02/19/15 17:00 4 UNITS] insulin glargine [Lantus Solostar U-100 Insulin] 49 units SUBCUT QHS 10/07/16 [History Last Taken Unknown] sirolimus 2 mg PO DAILY 10/07/16 [History Last Taken Unknown] donepezil 10 mg PO DAILY 05/07/19 [History Last Taken Unknown] folic acid 1 mg PO DAILY 05/07/19 [History Last Taken Unknown] losartan [Cozaar] 25 mg PO BID 05/07/19 [History Last Taken Unknown] insulin lispro 13 unit SQ DINNER 12/27/19 [History Last Taken Unknown] insulin lispro 17 unit SQ LUNCH 12/27/19 [History Last Taken Unknown] insulin lispro unit SQ PRN PRN 02/16/21 [History Last Taken Unknown] B.infantis-B.ani-B.long-B.bifi [Probiotic Digestive Care] 1 tab PO DAILY 12/24/21 [History Last Taken Unknown] ergocalciferol (vitamin D2) 50,000 unit PO QWEEK 12/24/21 [History Last Taken Unknown] metronidazole 1 applic TOPICAL DAILY 12/24/21 [History Last Taken Unknown] subcutaneous insulin pump [Omnipod Insulin Management] 12/24/21 [History Last Taken Unknown] Allergy/AdvReac Type Severity Reaction Status Date / Time Penicillins [PCN] AdvReac Other Verified 12/23/21 22:43 Family History Other Heart disease Surgical History H/O hernia repair History of appendectomy Liver transplanted S/P cholecystectomy Social History Smoking Status: Never smoker ROS ROS Narrative Pertinent positives and pertinent negatives as noted in HPI. All other systems were reviewed and are negative. Vital Signs Vital Signs Vital Signs: 12/23/21 22:40 12/24/21 00:10 12/24/21 00:20 Temperature 99.8 F H Temperature Source Oral Pulse Rate 90 70 Respiratory Rate 18 26 H Blood Pressure 144/67 H 146/74 H Blood Pressure Mean 92 98 Pulse Ox 91 88 98 Oxygen Delivery Method Room Air Room Air Nasal Cannula Oxygen Flow Rate (L/min) 2 12/24/21 01:39 12/24/21 02:30 12/24/21 03:00 Temperature 98.5 F Temperature Source Oral Pulse Rate 72 72 75 Respiratory Rate 24 H 24 H 25 H Blood Pressure 159/67 H 158/77 H 149/71 H Blood Pressure Mean 97 104 97 Pulse Ox 96 96 95 Oxygen Delivery Method Nasal Cannula Nasal Cannula Nasal Cannula Oxygen Flow Rate (L/min) 2 2 2 Weight Weight: 73.936 kg Body Mass Index (BMI) 26.3 Physical Exam Narrative Physical exam: General: Well-nourished, well-developed. Head: Normocephalic, atraumatic, no tenderness Eyes: PERRLA, EOMI ENT, no trauma, moist mucous membranes, no rhinorrhea Neck: Nontender, full range of motion, no spinal tenderness, deformities, step- off CVS: Regular rate and rhythm. S1-S2 present. No murmur, gallop or rub. Respiratory : Tachypnea; rales; chest wall nontender. Abdomen: Soft, nontender, nondistended, normal bowel sounds, no masses : Deferred Back: Nontender, no CVA tenderness, no midline spinal tenderness, deformities, step-offs Extremities: Nontender full range of motion, no trauma Skin: Normal color, no trauma, abrasions Neuro: Alert, oriented, cranial nerves II through XII grossly intact. Psychiatry: Normal mood. Normal affect. Not depressed. Not anxious. Results Lab / Micro Data Result Diagrams: 12/23/21 23:25 12/23/21 23:25 Labs: Laboratory Results - last 24 hr 12/23/21 23:25: WBC 5.7, RBC 4.13 L, Hgb 10.7 L, Hct 32.5 L, MCV 78.7 L, MCH 25.9 L, MCHC 32.9, RDW Std Deviation 40.2, RDW Coeff of Gaetano 14.1, Plt Count 328, MPV 8.7, Immature Gran % (Auto) 0.500, Neut % (Auto) 68.6, Lymph % (Auto) 15.9 L, [place] % (Auto) 11.0 H, Eos % (Auto) 3.5, Baso % (Auto) 0.5, Absolute Neuts (auto) 3.9, Absolute Lymphs (auto) 0.90, Nucleated RBC % 0 12/23/21 23:25: Sodium 135 L, Potassium 3.2 L, Chloride 102, Carbon Dioxide 26.0, Anion Gap 7, BUN 16, Creatinine 1.01, Estim Creat Clear Calc 53.52, Est GFR (MDRD) Af Amer 91, Est GFR (MDRD) Non-Af 76, BUN/Creatinine Ratio 15.8, Glucose 107 H, Calcium 8.5, Total Bilirubin 0.50, AST 36, ALT 44, Alkaline Phosphatase 96, Troponin I High Sens 10, Total Protein 6.2 L, Albumin 2.6 L, Globulin 3.6, Albumin/Globulin Ratio 0.7 L 12/23/21 23:25: Lactic Acid 0.8 12/23/21 23:25: Procalcitonin 0.16 H 12/24/21 00:07: COVID-19 (JAMES) Not Detected Micro: Microbiology 12/23/21 23:28 Nasal Secretion SARS-CoV-2 Antigen (Rapid) - Final Radiology Impression Chest X-Ray 12/23/21 23:01 IMPRESSION: Age-indeterminate bronchitis. Otherwise, no acute cardiopulmonary disease. Electronically Signed: Rudy Wick MD at 23:52 EST Tel , Service support , Chest CTA 12/24/21 00:50 IMPRESSION: 1. Bilateral multilobar subtle patchy groundglass opacities. Consider infectious etiology. 2. No PE. 3. Few healing rib fractures anterolaterally at the lower aspect of the right hemithorax. 4. Nonspecific but potentially reactive subcarinal adenopathy measuring up to 1.9 cm short axis. Attention on follow-up. Electronically Signed: Rudy Wick MD at 2:05 EST Tel , Service support , Assessment & Plan Assessment/Plan (1) Acute hypoxemic respiratory failure: PLAN: Acute hypoxic respiratory failure Tachypnea; Oxygen saturation of 87% on room air at the emergency department Chest x-ray: Age indeterminate bronchitis per radiologist interpretation Chest CTA: Independently interpreted showed patchy bilateral infiltrates and lymphadenopathy. I agree with radiologist interpretation CBC showed a white count of 5.7 with normal neutrophils but with lymphopenia and monocytosis. Etiology is unclear at this time. Chest x-ray with multifocal infiltrates. Covid antigen and Covid PCR is negative. Strep pneumonia and Legionella urine antigen ordered. Sputum culture ordered. Mycoplasma IgG and IgM ordered. SARS-CoV-2 IgG and IgM ordered. RSV and rapid influenza ordered. Histoplasmosis antibody ordered. Inflammatory markers LDH; CRP; ferritin ordered. Procalcitonin is 0.16. Received Decadron at the emergency department. Will continue on Decadron empirically. Continue oxygen supplementation start emergency department. Titrate oxygen as diminished Envelope Press Operator consult. Hypokalemia K 3.2 Replace Trend BMP. Diabetes mellitus Mild hyperglycemia on presentation Home insulin pump; continued Accu-Chek QACHS DVT prophylaxis Subcutaneous Lovenox ordered. Charges/Coding Visit Charges Inpatient E&M: 65929 Init Hosp L3
--- NOTE | 2021-12-24 05:30 | NURSING ---
check pt blood sugar using home sensor 163. sensor located on pt right ABD. Omnipod located on pt upper left arm
[2021-12-24] MEDS: Potassium Chloride Oral Tablet 20 MEQ 40 MEQ PO (05:53)
--- NOTE | 2021-12-24 06:12 | PCS.PANDOC ---
PANDEMIC DOCUMENTATION INITIATED: Date: 12/24/2021 Time: 0767
[2021-12-24 07:14] LABS: Absolute Lymphocyte Count 0.41 X10^3/uL (0.83-4.51); Absolute Neutrophil Count 3.4 X10^3/uL (2.0-7.7); Basophil# 0.01 X10^3/uL; Basophil% 0.3 % (0-1); Eosinophil# 0.02 X10^3/uL; Eosinophils% 0.5 % (0-5); Hematocrit 33.3 % (40-54); Lymphocyte # 0.41 X10^3/ul (0.83-4.51); Lymphocyte % 10.3 % (19-41); Mean Corpuscular Hgb 25.8 pg (27.0-32.0); Mean Platelet Vol. 8.6 fl (6.2-12.0); Monocyte# 0.08 X10^3/uL; NRBC Flagged by Analyzer 0 % (0-5); Neutrophil # 3.43 X10^3/uL (2.7-7.7); Neutrophil % 86.1 % (47-70); POSITIVE DIFFERENTIAL YES; Platelet Count 305 K/mm3 (150-450); RBC Distribution Width CV 13.9 % (11.6-14.6); RBC Distribution Width SD 39.7 fl (35.1-43.9); Red Blood Count 4.27 M/mm3 (4.6-6.2)
[2021-12-24 07:22] LABS: Differential Indicated SCAN CRITERIA MET
--- NOTE | 2021-12-24 07:31 | PCM.PN.HOSP ---
Subjective Subjective Patient has history of hemochromatosis, and liver cancer therefore had liver transplant in 2012.This time admitted with3 weeks persistent cough cold fever chills and sore/Scratch throat. Objective Data Objective Data Vital Signs: Vital Signs Temp Pulse Resp BP Pulse Ox 98.2 F 76 17 161/70 H 92 12/24/21 04:57 12/24/21 04:57 12/24/21 04:57 12/24/21 04:57 12/24/21 05:55 Oxygen Flow Rate (L/min) 2 Oxygen Delivery Method Room Air Weight: 161 lb 6.054 oz Body Mass Index (BMI) 26.0 Lab / Micro Data Result Diagrams: 12/24/21 06:54 12/24/21 06:54 Labs: Laboratory Results - last 24 hr 12/23/21 23:25: WBC 5.7, RBC 4.13 L, Hgb 10.7 L, Hct 32.5 L, MCV 78.7 L, MCH 25.9 L, MCHC 32.9, RDW Std Deviation 40.2, RDW Coeff of Gaetano 14.1, Plt Count 328, MPV 8.7, Immature Gran % (Auto) 0.500, Neut % (Auto) 68.6, Lymph % (Auto) 15.9 L, [place] % (Auto) 11.0 H, Eos % (Auto) 3.5, Baso % (Auto) 0.5, Absolute Neuts (auto) 3.9, Absolute Lymphs (auto) 0.90, Nucleated RBC % 0 12/23/21 23:25: Sodium 135 L, Potassium 3.2 L, Chloride 102, Carbon Dioxide 26.0, Anion Gap 7, BUN 16, Creatinine 1.01, Estim Creat Clear Calc 53.52, Est GFR (MDRD) Af Amer 91, Est GFR (MDRD) Non-Af 76, BUN/ Creatinine Ratio 15.8, Glucose 107 H, Calcium 8.5, Total Bilirubin 0.50, AST 36, ALT 44, Alkaline Phosphatase 96, Troponin I High Sens 10, Total Protein 6.2 L, Albumin 2.6 L, Globulin 3.6, Albumin/Globulin Ratio 0.7 L 12/23/21 23:25: Lactic Acid 0.8 12/23/21 23:25: Procalcitonin 0.16 H 12/24/21 00:07: COVID-19 (JAMES) Not Detected 12/24/21 06:54: WBC 4.0 L, RBC 4.27 L, Hgb 11.0 L, Hct 33.3 L, MCV 78.0 L, MCH 25.8 L, MCHC 33.0, RDW Std Deviation 39.7, RDW Coeff of Gaetano 13.9, Plt Count 305, MPV 8.6, Immature Gran % (Auto) 0.800, Neut % (Auto) 86.1 H, Lymph % (Auto) 10.3 L, [place] % (Auto) 2.0, Eos % (Auto) 0.5, Baso % (Auto) 0.3, Absolute Neuts (auto) 3.4, Absolute Lymphs (auto) 0.41 L, Nucleated RBC % 0 Micro: Microbiology 12/24/21 05:55 Mucosa - Nasopharyngeal Rapid RSV (DFA) - Final 12/24/21 05:55 Mucosa - Nasopharyngeal Influenza Types A,B Direct FA (DOYLE) - Final 12/23/21 23:28 Nasal Secretion SARS-CoV-2 Antigen (Rapid) - Final Radiography Diagnostic Testing: Radiology Impression Chest X-Ray 12/23/21 23:01 IMPRESSION: Age-indeterminate bronchitis. Otherwise, no acute cardiopulmonary disease. Electronically Signed: Rudy Wick MD at 23:52 EST Tel , Service support , Chest CTA 12/24/21 00:50 IMPRESSION: 1. Bilateral multilobar subtle patchy groundglass opacities. Consider infectious etiology. 2. No PE. 3. Few healing rib fractures anterolaterally at the lower aspect of the right hemithorax. 4. Nonspecific but potentially reactive subcarinal adenopathy measuring up to 1.9 cm short axis. Attention on follow-up. Electronically Signed: Rudy Wick MD at 2:05 EST Tel , Service support , Physical Exam Narrative General: Alert, Oriented x3, Cooperative HEENT: Atraumatic, PERRLA, EOMI, Normocephalic: Mild hearing loss Oral: No Gingival or Mucosal Lesions/ Ulcerations Neck: Supple, No JVD, Negative Carotid Bruits Lungs: Air entry diminished in bilateral lung bases. No crepitation/rhonchi Cardiovascular: Regular rate, Regular Rhythm, Normal S1, Normal S2, No murmurs Abdomen: Bowel Sounds Present, Soft, Non Tender, Non-Distended : No renal angle tenderness. No suprapubic tenderness. Extremities: No edema, Capillary Refill Less than 3 Seconds Skin: No rashes, No breakdown Musculoskeletal: No Tenderness to Palpation of Joints or Extremities Neurological: Cranial nerves II-XII grossly intact, DTR 2+/4 and Muscle strength 5/5 at major joints Psych/Mental Status: Normal Affect, Appropriate. Assessment & Plan Assessment/Plan (1) Acute hypoxemic respiratory failure: PLAN: This is a 31-year-old male with history of liver transplant on sirolimus is admitted with 3 weeks history of persistent cough, fever and chills, hypoxia and chest x-ray finding consistent with right middle lobe pneumonia. Patient had 8 days of Keflex as an outpatient. Acute hypoxic respiratory failure: Patient had negative COVID-19 PCR on December 04 and again .RSV and Rapid flu were negative. CT CTA chest shows subtle bilateral groundglass opacities.Currently , 97% room air. In ED pulse ox was 97% on room air.Urinary antigens are negative Sputum culture ordered. Mycoplasma IgG and IgM ordered. SARS-CoV-2 IgG antibody more than 150.Procalcitonin 0.16.CRP,Fibrillation LDH are elevated. ALC 0.4K. Leukocyte count 4000 thousand SARS-CoV-2 IgG and IgM ordered. Histoplasmosis antibody ordered. Inflammatory markers LDH; CRP; ferritin ordered. Procalcitonin is 0.16. continue on Decadron empirically. Pulse oximetry 97% on room air. Seen by key punch teacher Hypokalemia K 3.2Corrected to 3.7 Diabetes mellitus, Type II: Patient on insulin pump.ContinuedPatient also has sensor on left arm. Mild hyperglycemia on presentation DVT prophylaxis Subcutaneous Lovenox ordered.
[2021-12-24 07:37] LABS: Anion Gap 6 (5-15); BUN 15 mg/dL (7-18); BUN/Creat Ratio 15.7 RATIO (10-20); Calcium,Total 9.1 mg/dL (8.5-10.1); Chloride 105 mmol/L (98-107); Creatinine, Serum 0.95 mg/dL (0.70-1.30); EST Glomerular Filtration Rate 81 mL/min (>60); Est Glom Filt Rate - Afr Amer 98 mL/min (>60); Ferritin 154 ng/mL (26-388); Glucose 180 mg/dL (74-106); LDH 404 U/L (87-241); Potassium 3.7 mmol/L (3.5-5.1); Sodium Level 137 mmol/L (136-145)
[2021-12-24 08:00] LABS: Magnesium 2.3 mg/dL (1.6-2.6); Phosphorus 2.9 mg/dL (2.5-4.9)
[2021-12-24 08:05] LABS: Fibrinogen 711 mg/dl (203-444)
--- NOTE | 2021-12-24 08:22 | CON.PCM.CC_ITS ---
Assessment & Plan Assessment/Plan (1) SOB (shortness of breath): PLAN: RECOMMENDATIONS: 1. Okay to discontinue Decadron from my perspective. 2. Perform walking oximetry study. If the patient is not hypoxemic with ambulation, he can be discharged home. 3. The patient can follow-up in the pulmonary medicine clinic following discharge for further work-up. 4. Okay to discontinue Covid precautions. IMPRESSIONS: 1. Shortness of breath The patient was initially admitted to the hospital with shortness of breath and concern for community-acquired pneumonia. Both rapid antigen and PCR testing for Covid were negative. Although he did have an elevated IgG level, the patient was also recently boosted. His CTA chest did have some mild groundglass changes, which could be possibly related to a non-Covid viral etiology. The patient is currently maintaining appropriate oxygen saturations in the high 90s on room air. Therefore, I do not see an indication for Decadron. I would recommend that you ambulate the patient in the hallway and if he maintains appropriate oxygen saturations he can be discharged home. The patient can follo w-up in the pulmonary medicine clinic on an outpatient basis for further work- up. 2. Diabetes mellitus/history of hemochromatosis status post liver transplantation Complicates care, management, recovery and prognosis. Continue home medications as indicated. This note was generated with [employer] dictation software. It may contain incorrect words, spelling, and punctuation that were not noted in checking the note before signing. HPI Consult Data Date of Consult: 12/24/21 HPI Narrative Reason for Consultation: Community-acquired pneumonia HPI Narrative: The patient is a 81-year-old male, with a history as outlined below, who presented to the emergency department on December 23 with progressive dyspnea. The patient is vaccinated against Covid and recently got his booster. His was ill with Covid around [place]. The patient does not utilize supplemental oxygen at his baseline. On presentation to the emergency department, the patient was noted to have a low-grade fever but was otherwise hemodynamically stable. The patient has had negative Covid PCR test completed on December 04 and again on December 24. RSV and rapid flu were negative. CTA chest showed no evidence for PE but did demonstrate subtle groundglass changes bilaterally. The patient was subsequently started on Decadron and admitted to the hospital for further management. The patient is currently maintaining an oxygen saturation of 97% on room air. He is anxious to be discharged home. [facility] Medical History Diabetes Hypertension Home Medications amlodipine 2.5 mg PO DAILY 07/03/14 [History Last Taken 12/23/21] aspirin 81 mg PO DAILY 07/03/14 [History Last Taken 12/23/21] atorvastatin 10 mg PO QHS 07/03/14 [History Last Taken 12/22/21] sirolimus 2 mg PO DAILY 10/07/16 [History Last Taken 12/23/21] donepezil 10 mg PO QHS 05/07/19 [History Last Taken 12/22/21] folic acid 1 mg PO DAILY 05/07/19 [History Last Taken 12/23/21] losartan [Cozaar] 25 mg PO BID 05/07/19 [History Last Taken 12/23/21] B.infantis-B.ani-B.long-B.bifi 1 tab PO DAILY 12/24/21 [History Last Taken 12/23/21] Omnipod Insulin Management 12/24/21 [History Last Taken Unknown] albuterol sulfate 2 puff INHALATION Q6H PRN PRN 12/24/21 [History Last Taken Unknown] ergocalciferol (vitamin D2) 50,000 unit PO SA 12/24/21 [History Last Taken 12/21/21] guaifenesin [Mucus Relief ER] 1,200 mg PO BID #14 tab 12/24/21 [Rx Last Taken Unknown] insulin lispro 12/24/21 [History Last Taken Unknown] metronidazole 1 applic TOPICAL DAILY 12/24/21 [History Last Taken 12/23/21] Allergy/AdvReac Type Severity Reaction Status Date / Time Penicillins [PCN] AdvReac Other Verified 12/23/21 22:43 Family History Other Heart disease Surgical History H/O hernia repair History of appendectomy Liver transplanted S/P cholecystectomy Social History Smoking Status: Never smoker ROS Constitutional Constitutional: Reports fatigue Eyes Eyes: Denies blurry vision or change in vision ENT HEENT: Denies dizziness, epistaxis, headache(s) or loss taste/smell Cardiovascular Cardiovascular: Reports dyspnea Respiratory/Chest Respiratory/Chest: Reports cough and dyspnea Gastrointestinal Gastrointestinal: Denies abdominal pain, diarrhea, nausea or vomiting Genitourinary Genitourinary: Denies difficulty urinating Musculoskeletal Musculoskeletal: Denies arthralgias or back pain Integumentary Integumentary: Denies lesions, rash or skin ulcer Neurologic Neurologic: Denies abnormal gait or abnormal speech Psychiatric Psychiatric: Denies anxiety or depression Endocrine Endocrinology: Denies fatigue Hematologic/Lymphatic Hematologic/Lymphatic: Denies easy bleeding or easy bruising Physical Exam Const alert and no apparent distress General Appearance: cooperative HEENT normocephalic and head/scalp atraumatic Eyes PERRL, EOMs intact bilaterally and conjunctivae normal Neck supple General: trachea midline Chest inspection of chest normal Resp Auscultation: diminished lung sounds; Negative for rales, rhonchi or wheezes Cardio regular rate and regular rhythm GI normal to inspection, nondistended, normoactive bowel sounds Extremity no clubbing, cyanosis or edema Skin no rashes or lesions noted Neuro CN's II-XII intact bilaterally, moves all extremities and no focal motor deficits Psych cooperative and affect normal Lab / Micro Data Result Diagrams: 12/24/21 06:54 12/24/21 06:54 Labs: Laboratory Results - last 24 hr 12/23/21 23:25: WBC 5.7, RBC 4.13 L, Hgb 10.7 L, Hct 32.5 L, MCV 78.7 L, MCH 25.9 L, MCHC 32.9, RDW Std Deviation 40.2, RDW Coeff of Gaetano 14.1, Plt Count 328, MPV 8.7, Immature Gran % (Auto) 0.500, Neut % (Auto) 68.6, Lymph % (Auto) 15.9 L, Sabine % (Auto) 11.0 H, Eos % (Auto) 3.5, Baso % (Auto) 0.5, Absolute Neuts (auto) 3.9, Absolute Lymphs (auto) 0.90, Nucleated RBC % 0 12/23/21 23:25: Sodium 135 L, Potassium 3.2 L, Chloride 102, Carbon Dioxide 26.0, Anion Gap 7, BUN 16, Creatinine 1.01, Estim Creat Clear Calc 53.52, Est GFR (MDRD) Af Amer 91, Est GFR (MDRD) Non-Af 76, BUN/Creatinine Ratio 15.8, Glucose 107 H, Calcium 8.5, Total Bilirubin 0.50, AST 36, ALT 44, Alkaline Phosphatase 96, Troponin I High Sens 10, Total Protein 6.2 L, Albumin 2.6 L, Globulin 3.6, Albumin/Globulin Ratio 0.7 L 12/23/21 23:25: Lactic Acid 0.8 12/23/21 23:25: Procalcitonin 0.16 H 12/24/21 00:07: COVID-19 (JAMES) Not Detected 12/24/21 06:54: Fibrinogen 711 H 12/24/21 06:54: Sodium 137, Potassium 3.7, Chloride 105, Carbon Dioxide 26.0, Anion Gap 6, BUN 15, Creatinine 0.95, Estim Creat Clear Calc 56.90, Est GFR (MDRD) Af Amer 98, Est GFR (MDRD) Non-Af 81, BUN/Creatinine Ratio 15.7, Glucose 180 H, Calcium 9.1, Ferritin 154, Lactate Dehydrogenase 404 H, C-React Prot Ext Range 83.80 H 12/24/21 06:54: WBC 4.0 L, RBC 4.27 L, Hgb 11.0 L, Hct 33.3 L, MCV 78.0 L, MCH 25.8 L, MCHC 33.0, RDW Std Deviation 39.7, RDW Coeff of Gaetano 13.9, Plt Count 305, MPV 8.6, Immature Gran % (Auto) 0.800, Neut % (Auto) 86.1 H, Lymph % (Auto) 10.3 L, Sabine % (Auto) 2.0, Eos % (Auto) 0.5, Baso % (Auto) 0.3, Absolute Neuts (auto) 3.4, Absolute Lymphs (auto) 0.41 L, Nucleated RBC % 0, Differential Comment COMMENT, Diff Path Review March12/24/21 06:54: Phosphorus 2.9, Magnesium 2.3 Micro: Microbiology 12/24/21 05:55 Mucosa - Nasopharyngeal Rapid RSV (DFA) - Final 12/24/21 05:55 Mucosa - Nasopharyngeal Influenza Types A,B Direct FA (DOYLE) - Final 12/23/21 23:28 Nasal Secretion SARS-CoV-2 Antigen (Rapid) - Final Radiology Impression Chest X-Ray 12/23/21 23:01 IMPRESSION: Age-indeterminate bronchitis. Otherwise, no acute cardiopulmonary disease. Electronically Signed: Rudy Wick MD at 23:52 EST Tel , Service support , Chest CTA 12/24/21 00:50 IMPRESSION: 1. Bilateral multilobar subtle patchy groundglass opacities. Consider infectious etiology. 2. No PE. 3. Few healing rib fractures anterolaterally at the lower aspect of the right hemithorax. 4. Nonspecific but potentially reactive subcarinal adenopathy measuring up to 1.9 cm short axis. Attention on follow-up. Electronically Signed: Rudy Wick MD at 2:05 EST Tel , Service support , Charges/Coding Visit Charges Inpatient E&M: 02081 Init Hosp L3
[2021-12-24] MEDS: Aspirin 81 MG TAB.CHEW PO (08:56)
[2021-12-24] MEDS: Folic Acid 1 MG Tablet PO (08:56)
[2021-12-24] MEDS: amLODIPine 2.5 MG Tablet PO (08:56)
[2021-12-24] MEDS: guaiFENesin 1,200 MG Tablet 1200 MG PO (08:56)
[2021-12-24] MEDS: Losartan Potassium 25 MG Tablet PO (08:56)
[2021-12-24] MEDS: Enoxaparin 30 MG/0.3 ML Syringe SC (08:57)
[2021-12-24] MEDS: Donepezil HCl 10 MG Tablet PO (08:57)
--- NOTE | 2021-12-24 10:53 | PCM.DC ---
Discharge Instructions Diet Discharge Diet: 1800 Calorie Control Diet Activity Discharge Activity: Return to Normal Activity and May Not Drive Dressing / Incision Call your doctor if you observe: Fever of 101 or Higher, Coldness, Increased Pain, Numbness or Tingling, Change in Color, Inability to urinate, Inability to have a bowel movement, Shortness of breath, Dizziness, Fainting spells, Swelling in the ankles, Chest pain, Prolonged hiccupping, Increased palpitations (irregular heartbeat), Calf discomfort and Uncontrolled pain Follow Up Care Test Results: Test results from this visit will be discussed in further detail at your follow-up appointment, if applicable. Discharge Plan Admission Admit Date/Time: 12/24/21 03:27 Primary Reason for Your Visit: New viral infection Attending Provider: Cole Conway Primary Care Provider: Crispin Cesar Consulting Providers: Jarret Nielsen Discharge Orders/Prescriptions Prescriptions: New Mucus Relief ER 1,200 mg Tablet Extended Release 12hr 1,200 mg PO BID Qty: 14 RF: 0 Continued atorvastatin 10 MG tablet 10 mg PO QHS RF: 0 amlodipine 2.5 MG tablet 2.5 mg PO DAILY RF: 0 aspirin 81 MG tablet,chewable 81 mg PO DAILY RF: 0 sirolimus 1 MG tablet 2 mg PO DAILY RF: 0 losartan [Cozaar] 50 MG tablet 25 mg PO BID RF: 0 donepezil 5 MG tablet 10 mg PO QHS RF: 0 folic acid 1 MG tablet 1 mg PO DAILY RF: 0 ergocalciferol (vitamin D2) 50,000 unit Tablet 50,000 unit PO SA RF: 0 metronidazole 0.75 % Gel 1 applic TOPICAL DAILY RF: 0 (DME) Omnipod Insulin Management Misc MISCELLANEOUS RF: 0 B.infantis-B.ani-B.long-B.bifi 10-15 mg Tablet,Delayed Release (Dr/Ec) 1 tab PO DAILY RF: 0 albuterol sulfate 90 mcg/actuation HFA aerosol inhaler 2 puff INHALATION Q6H PRN PRN (Reason: SOB) RF: 0 insulin lispro 100 unit/mL Cartridge RF: 0 Discontinued cefdinir 300 mg Capsule 300 mg PO BID RF: 0 Referrals / Follow Up: Crispin Cesar MD [Primary Care Provider] - Disposition Disposition (needs filled in before D/C Order can be placed): Home, Self Care
--- NOTE | 2021-12-24 12:00 | CASEMGMT ---
Addendum entered by Billy Quintanilla 12/28/21 08:37: VM received from Catherine Garcia @ [facility] stating she did receive the referral, she has spoken w/, and plans to f/u w/ again next week. Addendum entered by Billy Quintanilla 12/24/21 14:31: Home ambulatory O2 testing has been completed. Pt does not qualify for Home O2. Original Note: RN CM LACE WEAVER CM spoke w/pt's for initial transition planning/care coordination assessment. Pt is oriented but forgetful, per report. RN HAIDER introduced self and role at [facility]. voices understanding. Care providers, pharmacy, and demographics verified/updated at this time. PCP: Dr Cesar Specialists: Dr Mayfield @ [facility] and post-transplant coordinators, Trudi. Genia Conroy NP, @ [facility]--endocrinology. Preferred Pharmacy: [facility] Insurance: [facility], [place] Prescription Benefit: Yes Living Will/HPOA: Has both. is HPOA. LNOK: , Inocente. 3 daughters: Kerrie Godoy Lori. Son, Luke Living Arrangements: Lives w/his in a 2-story home w/2 steps to enter. FFSU. Pt is independent w/ADL's. manages pt's medications and appts and home mgmt tasks. Transportation: Pt still drives some. also drives. DME: Has the following DME: pulse ox, Insulin pump/Omni-Pad w/transmitter, sensor, and insulin pods. manages Insulin system. No home O2. states no need for further DME at this time. If pt qualifies for home O2, prefers [employer], as this is who he had O2 thru this past year and she was pleased with them. HHC/SNF: No hx of SNF. Has had HHC in the past, but does not remember name. wishes for pt to return home and states has no concerns with going home at time of discharge. CM to follow for home oxygen needs and any further discharge planning/needs. talked w/GALILEO MALONEY about how pt's memory is not good and he forgets things and that she helps pt w/managing things @ home. states, You help take care of them because you love them, but you do get tired. RN HAIDER spoke w/ about [facility] and she states is interested and agreeable to a referral. Referral faxed to [facility]. provided with their info/contact #. She voices appreciation. She states their children are very supportive as well. voices no further concerns/needs at this time. Advised her to ask for CM if any further questions/concerns/needs arise. Voices understanding. PLAN: Home w/family support and discharge plans in place. Donna RIZO RN, CM
--- NOTE | 2021-12-24 13:57 | DS.PCM_ITS ---
Providers Date of Admission: 12/24/21 Primary Care Physician: Dr. Crispin Cesar MD Consultations 12/24/21 04:42 Consult: Assistant Hall Director / Pulmonary Medicine Routine Consulting Provider: Jarret Nielsen Reason for Consult: hypoxemic respiratory failure EMERGENT Consult: No MD Notified: Yes Date Notified: 12/24/21 Time Notified: 06:08 Method of Notification: Verbal Reason For Visit: ACUTE HYPOXIMIC RESPIRATORY FAILURE Diagnosis Discharge Diagnosis (1) SOB (shortness of breath): Status: Acute Code(s): R06.02 - Shortness of breath Medications at Discharge Home Medications amlodipine 2.5 mg PO DAILY 07/03/14 aspirin 81 mg PO DAILY 07/03/14 atorvastatin 10 mg PO QHS 07/03/14 sirolimus 2 mg PO DAILY 10/07/16 donepezil 10 mg PO QHS 05/07/19 folic acid 1 mg PO DAILY 05/07/19 losartan [Cozaar] 25 mg PO BID 05/07/19 B.infantis-B.ani-B.long-B.bifi 1 tab PO DAILY 12/24/21 Omnipod Insulin Management 12/24/21 albuterol sulfate 2 puff INHALATION Q6H PRN PRN 12/24/21 ergocalciferol (vitamin D2) 50,000 unit PO SA 12/24/21 guaifenesin [Mucus Relief ER] 1,200 mg PO BID #14 tab 12/24/21 insulin lispro 12/24/21 metronidazole 1 applic TOPICAL DAILY 12/24/21 Hospital Course Summary of Care Provided Hospital Course: This is a 81-year-old male with history of liver transplant on sirolimus is admitted with 3 weeks history of persistent cough, fever and chills, hypoxia and chest x-ray finding consistent with right middle lobe pneumonia. Patient had 8 days of Keflex as an outpatient. Acute hypoxic respiratory failure: Patient had negative COVID-19 PCR on December 04 and again .RSV and Rapid flu were negative. CT CTA chest shows subtle bilateral groundglass opacities.Currently , 97% room air. In ED pulse ox was 88% on room air.Urinary antigens are negative Sputum culture was ordered but patient did not had his sputum production. Mycoplasma IgG and IgM are pending. Histoplasma antibody pending. SARS-CoV-2 IgG antibody more than 150. Discussed with Dr. Nielsen. It seems patient might have IgG antibody from COVID-19 vaccination. Currently patient does not have hypoxia on ambulation he might have some other viral infection. Patient respiratory status has improved and wants to go home. Procalcitonin 0.16.CRP, fibrinogen and LDH are elevated. ALC 0.4K. Leukocyte count 4000 thousand Patient is discharged home. Hypokalemia K 3.2Corrected to 3.7 Diabetes mellitus, Type II: Patient on insulin pump.ContinuedPatient also has sensor on left arm. Mild hyperglycemia on presentation DVT prophylaxis Subcutaneous Lovenox ordered. Discharge medication reconciliation done. Discharge follow-up instructions completed. Discharge process discussed with the patient and all questions were answered to patient's satisfaction. Total time spent, exact 35 minutes on discharge meds reconciliation, examination, coordination of care with nurses and ancillary staff, review of imaging and blood test and discussion with the patient on follow-up ins tructions Physical Exam Narrative Please see progress note of the same day. Patient pulse ox 97% on room air. Mild cough. Weight / BMI Weight Weight: 161 lb 6.054 oz Body Mass Index (BMI) 26.0 ABG / Lab / Microbiology Data Result Diagrams: 12/24/21 06:54 12/24/21 06:54 Laboratory: Laboratory Results - last 24 hr 12/23/21 23:25: WBC 5.7, RBC 4.13 L, Hgb 10.7 L, Hct 32.5 L, MCV 78.7 L, MCH 25.9 L, MCHC 32.9, RDW Std Deviation 40.2, RDW Coeff of Gaetano 14.1, Plt Count 328, MPV 8.7, Immature Gran % (Auto) 0.500, Neut % (Auto) 68.6, Lymph % (Auto) 15.9 L , R[place]con % (Auto) 11.0 H, Eos % (Auto) 3.5, Baso % (Auto) 0.5, Absolute Neuts (auto) 3.9, Absolute Lymphs (auto) 0.90, Nucleated RBC % 0 12/23/21 23:25: Sodium 135 L, Potassium 3.2 L, Chloride 102, Carbon Dioxide 26.0, Anion Gap 7, BUN 16, Creatinine 1.01, Estim Creat Clear Calc 53.52, Est GFR (MDRD) Af Amer 91, Est GFR (MDRD) Non-Af 76, BUN/Creatinine Ratio 15.8, Glucose 107 H, Calcium 8.5, Total Bilirubin 0.50, AST 36, ALT 44, Alkaline Phosphatase 96, Troponin I High Sens 10, Total Protein 6.2 L, Albumin 2.6 L, Globulin 3.6, Albumin/Globulin Ratio 0.7 L 12/23/21 23:25: Lactic Acid 0.8 12/23/21 23:25: Procalcitonin 0.16 H 12/24/21 00:07: COVID-19 (JAMES) Not Detected 12/24/21 06:54: Fibrinogen 711 H 12/24/21 06:54: Sodium 137, Potassium 3.7, Chloride 105, Carbon Dioxide 26.0, Anion Gap 6, BUN 15, Creatinine 0.95, Estim Creat Clear Calc 56.90, Est GFR (MDRD) Af Amer 98, Est GFR (MDRD) Non-Af 81, BUN/Creatinine Ratio 15.7, Glucose 180 H, Calcium 9.1, Ferritin 154, Lactate Dehydrogenase 404 H, C-React Prot Ext Range 83.80 H 12/24/21 06:54: SARS-CoV-2 IgG Ab > 150.00 H 12/24/21 06:54: WBC 4.0 L, RBC 4.27 L, Hgb 11.0 L, Hct 33.3 L, MCV 78.0 L, MCH 25.8 L, MCHC 33.0, RDW Std Deviation 39.7, RDW Coeff of Gaetano 13.9, Plt Count 305, MPV 8.6, Immature Gran % (Auto) 0.800, Neut % (Auto) 86.1 H, Lymph % (Auto) 10.3 L, Rincon % (Auto) 2.0, Eos % (Auto) 0.5, Baso % (Auto) 0.3, Absolute Neuts (auto) 3.4, Absolute Lymphs (auto) 0.41 L, Nucleated RBC % 0, Differential Comment COMMENT, Diff Path Review March12/24/21 06:54: Phosphorus 2.9, Magnesium 2.3 Microbiology: Microbiology 12/24/21 05:40 Urine, Clean Catch Legionella Antigen - Final 12/24/21 05:40 Urine, Clean Catch Streptococcus pneumoniae Antigen (M - Final 12/24/21 05:55 Mucosa - Nasopharyngeal Rapid RSV (DFA) - Final 12/24/21 05:55 Mucosa - Nasopharyngeal Influenza Types A,B Direct FA (DOYLE) - Final 12/23/21 23:28 Nasal Secretion SARS-CoV-2 Antigen (Rapid) - Final Radiography Diagnostic Testing: Radiology Impression Chest X-Ray 12/23/21 23:01 IMPRESSION: Age-indeterminate bronchitis. Otherwise, no acute cardiopulmonary disease. Electronically Signed: Rudy Wick MD at 23:52 EST Tel , Service support , Chest CTA 12/24/21 00:50 IMPRESSION: 1. Bilateral multilobar subtle patchy groundglass opacities. Consider infectious etiology. 2. No PE. 3. Few healing rib fractures anterolaterally at the lower aspect of the right hemithorax. 4. Nonspecific but potentially reactive subcarinal adenopathy measuring up to 1.9 cm short axis. Attention on follow-up. Electronically Signed: Rudy Wick MD at 2:05 EST Tel , Service support , D/C Instructions Discharge Diet: 1800 Calorie Control Diet Call your doctor if you observe: Fever of 101 or Higher, Coldness, Increased Pain, Numbness or Tingling, Change in Color, Inability to urinate, Inability to have a bowel movement, Shortness of breath, Dizziness, Fainting spells, Swelling in the ankles, Chest pain, Prolonged hiccupping, Increased palpitations (irregular heartbeat), Calf discomfort and Uncontrolled pain Meaningful Use Info Meaningful Use Diagnoses (Choose all that apply): None applicable Discharge Plan Admission Admit Date/Time: 12/24/21 03:27 Primary Reason for Your Visit: New viral infection Attending Provider: Cole Conway Primary Care Provider: Crispin Cesar Consulting Providers: Jarret Nielsen Discharge Orders/Prescriptions Prescriptions: New Mucus Relief ER 1,200 mg Tablet Extended Release 12hr 1,200 mg PO BID Qty: 14 RF: 0 Continued atorvastatin 10 MG tablet 10 mg PO QHS RF: 0 amlodipine 2.5 MG tablet 2.5 mg PO DAILY RF: 0 aspirin 81 MG tablet,chewable 81 mg PO DAILY RF: 0 sirolimus 1 MG tablet 2 mg PO DAILY RF: 0 losartan [Cozaar] 50 MG tablet 25 mg PO BID RF: 0 donepezil 5 MG tablet 10 mg PO QHS RF: 0 folic acid 1 MG tablet 1 mg PO DAILY RF: 0 ergocalciferol (vitamin D2) 50,000 unit Tablet 50,000 unit PO SA RF: 0 metronidazole 0.75 % Gel 1 applic TOPICAL DAILY RF: 0 (DME) Omnipod Insulin Management Misc MISCELLANEOUS RF: 0 B.infantis-B.ani-B.long-B.bifi 10-15 mg Tablet,Delayed Release (Dr/Ec) 1 tab PO DAILY RF: 0 albuterol sulfate 90 mcg/actuation HFA aerosol inhaler 2 puff INHALATION Q6H PRN PRN (Reason: SOB) RF: 0 insulin lispro 100 unit/mL Cartridge RF: 0 Discontinued cefdinir 300 mg Capsule 300 mg PO BID RF: 0 Referrals / Follow Up: Crispin Cesar MD [Primary Care Provider] - Disposition Disposition (needs filled in before D/C Order can be placed): Home, Self Care Charges/Coding Visit Charges OBSV E&M: 69297 Observ/hosp same date L3
[2021-12-26 09:14] LABS: Pathologist Review Reviewed
[2021-12-28 18:00] LABS: Histoplasma Abs Negative (Neg:<1:1); Mycoplasma Pneum AB IgG 758 U/mL (0-99); Mycoplasma pneum. AB IgM < 770 U/mL (0-769); SAR-COV-2 IGM ANTIBODY Positive (Negative)
== END 2021-12-24 16:05 | disposition home or self-care (01) | DRG 194 ==
LOC: ED 12-24 03:25 → MS2 12-24 03:43
PROVIDERS: Admitting Provider Hospitalist; Emergency Provider Student in an Organized Health Care Education/Training Program; PCP Internal Medicine; Visit Provider Internal Medicine
DX: J18.9 Pneumonia, unspecified organism (principal); D84.9 Immunodeficiency, unspecified; Z94.4 Liver transplant status; G30.9 Alzheimer's disease, unspecified; E11.65 Type 2 diabetes mellitus with hyperglycemia; I10 Essential (primary) hypertension; E78.5 Hyperlipidemia, unspecified; E87.6 Hypokalemia; Z96.41 Presence of insulin pump (external) (internal); Z79.82 Long term (current) use of aspirin; Z86.16 Personal history of COVID-19; Z20.822 Contact with and (suspected) exposure to COVID-19; Z85.05 Personal history of malignant neoplasm of liver
CPT/HCPCS: 36415; 71045; 71275; 80048; 80053; 82728; 83605; 83615; 83735; 84100; 84145; 84484; 85025; 85384; 86140; 86698; 86738; 86769; 87040; 87426; 87449; 87635; 87804; 87807; 93005; 99284; Q9967; A4216; U0003; U0005